=== PATIENT | female | born 1995 | race Caucasian/White ===

== ENCOUNTER 2019-04-26 08:56 | Emergency (ER) | payer OTHER, SELFPAY ==
[2019-04-26 09:33] VITALS: BP 118/74; PULSE 89; RESP 20; TEMP 37.3; O2SAT 100
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
== END 2019-04-26 10:03 | disposition home or self-care (01) ==
PROVIDERS: Emergency Provider Nurse Practitioner Family
DX: S60.222D Contusion of left hand, subsequent encounter (principal); V89.2XXD Person injured in unspecified motor-vehicle accident, traffic, subsequent encounter
CPT/HCPCS: 99212; G0463

== ENCOUNTER 2019-04-27 08:02 | Emergency (ER) | payer OTHER, SELFPAY ==
[2019-04-27 08:11] VITALS: BP 125/71; PULSE 93; RESP 16; TEMP 36.8; O2SAT 100
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
== END 2019-04-27 09:15 | disposition home or self-care (01) ==
PROVIDERS: Emergency Provider Nurse Practitioner
DX: S01.01XA Laceration without foreign body of scalp, initial encounter (principal); W20.8XXA Other cause of strike by thrown, projected or falling object, initial encounter
CPT/HCPCS: 12002; 99212; G0463

== ENCOUNTER 2019-05-04 09:28 | Emergency (ER) | payer OTHER, SELFPAY ==
[2019-05-04 10:06] VITALS: BP 125/57; PULSE 76; RESP 16; TEMP 37; O2SAT 98
--- NOTE | 2019-05-04 10:33 | ED.SKABFB ---
HPI - Skin/Abscess/Foreign Bdy General Chief complaint: Skin/Abscess/Foreign Body Stated complaint: injury Time Seen by Provider: 05/04/19 10:33 Source: patient and family Mode of arrival: ambulatory History of Present Illness HPI narrative: Patient here for staple l removal she had placed 10 days ago. In the upper scalp. Patient denies any headache no drainage no redness to area patient denies any signs and symptoms of infection. MD complaint: other (Suture removal) Related Data Home Medications Medication Instructions Recorded Confirmed levonorgestrel-ethinyl estrad 1 tablet PO DAILY 04/26/19 05/04/19 [Larissia] Allergies Allergy/AdvReac Type Severity Reaction Status Date / Time No Known Allergies Allergy Verified 05/04/19 10:28 Review of Systems Review of Systems: Narrative: CONSTITUTIONAL: Denies fever, chills, or sweats. EYES: Denies visual changes, redness, or discharge. ENT: Denies rhinorrhea, congestion, sore throat, or otalgia. CARDIOVASCULAR: Denies chest pain, palpitations, or edema. RESPIRATORY: Denies cough or dyspnea. GASTROINTESTINAL: Denies abdominal pain, nausea, vomiting, or diarrhea. GENITOURINARY: Denies dysuria or hematuria. SKIN: Denies rash or itching. Davey intact MUSCULOSKELETAL: Denies back pain, joint pain, or myalgia. NEUROLOGIC: Denies headache, numbness, or weakness. PSYCHIATRIC: Denies anxiety or depression. PMFSH Social History Social History Gender identity (if verbalized by the patient): Female Comments At time of signature, agree with nursing past medical, surgical, social and family history. There is no relevant family history pertinent to the presenting complaint Exam Narrative: Exam Narrative: GENERAL: Well-appearing, well-nourished, and in no acute distress. HEAD: Normocephalic, atraumatic. EYES: PERRLA and EOMI. ENT: Nares clear, no rhinorrhea or epistaxis. Mucous membranes moist. NECK: Supple. CHEST: Clear to auscultation. No respiratory distress. HEART: Regular rate and rhythm. No murmur heard. Normal peripheral pulses. ABDOMEN: Soft, nontender, nondistended, normal active bowel sounds. EXTREMITIES: Normal range of motion. No edema. SKIN: Warm, dry, no rash. 3 davey intact to top of head no redness no drainage no edema edges well approximated no signs or symptoms of infection NEURO: No focal deficits. Alert and oriented x3. Byron Coma Scale Eye Opening: Spontaneous 4 Byron Coma Scale Motor: Obeys Commands 6 Krishna Coma Scale Verbal: Oriented 5 Byron Coma Scale Total 15 Course Vital Signs Vital signs: Vital Signs Temperature 37.0 C 05/04/19 10:06 Pulse Rate 76 05/04/19 10:06 Respiratory Rate 16 05/04/19 10:06 Blood Pressure 125/57 L 05/04/19 10:06 Pulse Oximetry 98 05/04/19 10:06 Temperature 37.0 C 05/04/19 10:06 Pulse Rate 76 05/04/19 10:06 Respiratory Rate 16 05/04/19 10:06 Blood Pressure 125/57 L 05/04/19 10:06 Pulse Oximetry 98 05/04/19 10:06 Please LUCIANA schedule a followup visit with your personal physician for further evaluation and treatment. Including recheck and discussion of your blood pressure. If your symptoms persist, change or worsen significantly before you can contact your personal physician then please, without delay, go to the emergency department for further evaluation Procedures Other Procedure Procedure 1: Other Procedure: Staple removal, 3 davey removed to the top of her head edges well approximated no signs or symptoms of infection patient tolerated procedure well MDM - Skin/Abscess/Foreign Bdy Differential Diagnosis Differential diagnosis: Likely abscess of skin or subcutaneous tissue and other (Suture removal, staple removal) Critical Care Time Critical Care Time Critical Care Time: No Discharge Plan Discharge Clinical Impression: Encounter for removal of davey Patient Disposition: Home, Self-Care Con
--- NOTE | 2019-05-04 12:05 | PC.NURSE ---
3 Benton removed from healed scalp laceration, all borders well approximated no redness,.
== END 2019-05-04 10:45 | disposition home or self-care (01) ==
PROVIDERS: Emergency Provider Nurse Practitioner Family
DX: S01.01XD Laceration without foreign body of scalp, subsequent encounter (principal); X58.XXXD Exposure to other specified factors, subsequent encounter
CPT/HCPCS: 99211; G0463